=== PATIENT | male | born 1960 | race Asian ===

== ENCOUNTER 2025-08-03 12:12 | Outpatient (CLI) | payer OTHER | END 2025-08-03 12:13 | disposition home or self-care (01) | LOC: CSHULT 12:12 | PROVIDERS: ATTEND Internal Medicine Cardiovascular Disease | DX: I70.90 Unspecified atherosclerosis (principal) | CPT/HCPCS: 93880 ==

== ENCOUNTER 2025-08-10 07:58 | Outpatient (CLI) | payer OTHER | END 2025-08-10 07:59 | disposition home or self-care (01) | LOC: CSHULT 07:58 | PROVIDERS: ATTEND Internal Medicine Cardiovascular Disease | DX: I70.90 Unspecified atherosclerosis (principal); E78.00 Pure hypercholesterolemia, unspecified; R79.89 Other specified abnormal findings of blood chemistry; R73.9 Hyperglycemia, unspecified | CPT/HCPCS: 76705; 76775 ==